=== PATIENT | male | born 1985 | race Caucasian/White ===

== ENCOUNTER 2017-11-28 11:41 | Emergency (ER) | payer OTHER ==
[~2017-11-28] VITALS: Ht 170.2 cm; Wt 75.0 kg
[2017-11-28] MEDS ORDERED: IOHEXOL 350 MG/ML 10 ML VIAL (for RAD DIAG) IVCONTRAST ONE (11:42)
[2017-11-28 11:50] VITALS: BP 156/96; PULSE 71; RESP 22; TEMP 97.9; O2SAT 100
[2017-11-28] MEDS ORDERED: SODIUM CHLOR 0.9% 1000 ML INJ 1,000 ML IV SCH (12:14)
[2017-11-28] MEDS ORDERED: SODIUM CHLORIDE 0.9% FLUSH 10 ML FLUSH IVF PRN (12:15)
[2017-11-28] MEDS ORDERED: MORPHINE SULFATE 4 MG/ML INJ IV PUSH ONE (12:30)
[2017-11-28] MEDS ORDERED: ONDANSETRON HCL 4 MG/2 ML VIAL IV ONE (12:30)
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
[2017-11-28 12:39] LABS: AUTOMATED NEUTROPHIL # 5.8 TH/MM3 (1.8-7.7); BASOPHIL # 0.1 TH/MM3 (0-0.2); BASOPHIL % 0.7 % (0.0-2.0); EOSINOPHIL # 0.5 TH/MM3 (0-0.4); EOSINOPHIL % 5.5 % (0.0-4.0); HEMATOCRIT 41.5 % (39.0-51.0); HEMOGLOBIN 14.9 GM/DL (13.0-17.0); LYMPH % 25.5 % (9.0-44.0); LYMPHOCYTE # 2.5 TH/MM3 (1.0-4.8); MEAN CELL VOLUME 88.1 FL (80.0-100.0); MEAN CORPUSCULAR HEMOGLOBIN 31.7 PG (27.0-34.0); MEAN PLATELET VOLUME 8.6 FL (7.0-11.0); MONO % 8.4 % (0.0-8.0); MONOCYTE # 0.8 TH/MM3 (0-0.9); NEUT % 59.9 % (16.0-70.0); PLATELET COUNT 250 TH/MM3 (150-450); RED BLOOD COUNT 4.72 MIL/MM3 (4.50-5.90); RED CELL DISTRIBUTION WIDTH 12.5 % (11.6-17.2); WHITE BLOOD COUNT 9.7 TH/MM3 (4.0-11.0)
[2017-11-28] MEDS ORDERED: ONDANSETRON ODT 4 MG TAB PO ONE (12:45)
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
[2017-11-28 12:49] LABS: INTERNATIONAL NORMALIZED RATIO 1.1 RATIO; PROTHROMBIN TIME - PATIENT 10.7 SEC (9.8-11.6)
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
--- NOTE | 2017-11-28 13:59 | PD ---
Physical Exam Time Seen by Provider: 13:58 Data Data Last Documented VS Vital Signs Date Time Temp Pulse Resp B/P (MAP) Pulse Ox O2 Delivery O2 Flow Rate FiO2 11/28/17 11:55 100 11/28/17 11:50 97.9 71 22 156/96 (116) Orders Orders I-Stat Profile (11/28/17 12:14) Complete Blood Count With Diff (11/28/17 12:14) Prothrombin Time / Inr (Pt) (11/28/17 12:14) Act Partial Throm Time (Ptt) (11/28/17 12:14) Ct Brain W/O Iv Contrast(Rout) (11/28/17 12:14) Ct Cerv Spine W/O Contrast (11/28/17 12:14) Ct Abd/Pel W Iv Contrast(Rout) (11/28/17 12:14) Ct Thorax/ Chest W Iv Contrast (11/28/17 12:14) Iv Access Insert/Monitor (11/28/17 12:14) Ecg Monitoring (11/28/17 12:14) Oximetry (11/28/17 12:14) Oxygen Administration (11/28/17 12:14) Sodium Chlor 0.9% 1000 Ml Inj (Ns 1000 M (11/28/17 12:14) Sodium Chloride 0.9% Flush (Ns Flush) (11/28/17 12:15) Ankle, Complete ([id number]) (11/28/17 ) Pelvis, Ap Only (Routine) (11/28/17 ) Chest, Single Ap (11/28/17 ) Morphine Inj (Morphine Inj) (11/28/17 12:30) Ondansetron Inj (Zofran Inj) (11/28/17 12:30) Ondansetron Odt (Zofran Odt) (11/28/17 12:45) Splint Or Brace Apply/Monitor (11/28/17 13:26) Crutches (11/28/17 13:26) Iohexol 350 Inj (Omnipaque 350 Inj) (11/28/17 11:42) Labs Laboratory Tests Test 11/28/17 12:20 White Blood Count 9.7 TH/MM3 Red Blood Count 4.72 MIL/MM3 Hemoglobin 14.9 GM/DL Bedside Hemoglobin 14.3 G/DL Hematocrit 41.5 % Bedside Hematocrit 42.0 % Mean Corpuscular Volume 88.1 FL Mean Corpuscular Hemoglobin 31.7 PG Mean Corpuscular Hemoglobin Concent 36.0 % Red Cell Distribution Width 12.5 % Platelet Count 250 TH/MM3 Mean Platelet Volume 8.6 FL Neutrophils (%) (Auto) 59.9 % Lymphocytes (%) (Auto) 25.5 % Monocytes (%) (Auto) 8.4 % Eosinophils (%) (Auto) 5.5 % Basophils (%) (Auto) 0.7 % Neutrophils # (Auto) 5.8 TH/MM3 Lymphocytes # (Auto) 2.5 TH/MM3 Monocytes # (Auto) 0.8 TH/MM3 Eosinophils # (Auto) 0.5 TH/MM3 Basophils # (Auto) 0.1 TH/MM3 CBC Comment AUTO DIFF Differential Comment AUTO DIFF CONFIRMED Prothrombin Time 10.7 SEC Prothromb Time International Ratio 1.1 RATIO Activated Partial Thromboplast Time 26.1 SEC Bedside Sodium 139 MMOL/L Bedside Potassium 4.4 MMOL/L Bedside Chloride 104 MMOL/L Bedside Blood Urea Nitrogen 158 MG/DL Bedside Creatinine 0.8 MG/DL Bedside Glucose 102 MG/DL [facility] Medical Record Reviewed: Yes Supervised Visit with MICHAEL: No Procedures Procedure Narrative LACERATION LOCATION: Right forehead LENGTH: 8 cm jagged NUMBER OF STITCHES/RIVER: 14 sutures REPAIR: The area of the laceration was prepped with Betadine and sterilely draped. The laceration was infiltrated with 1% lidocaine with epinephrine. The wound was copiously irrigated and explored without evidence of foreign body , tendon injury or neurovascular injury. The wound was closed using 5-0 Prolene. This was a single layer repair. A sterile dressing was applied. The patient was advised to keep the dressing clean and dry. Patient tolerated the procedure well. Condition: Stable BarreraErika armenta HAYLEY November 28, 2017 13:59
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
[2017-11-28 14:07] VITALS: O2SAT 100
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
[2017-11-28 15:15] VITALS: BP 151/89
== END 2017-11-28 15:15 | disposition home or self-care (01) ==
LOC: NEPD 11:41
DX: S01.81XA Laceration without foreign body of other part of head, initial encounter (principal); S82.65XA Nondisplaced fracture of lateral malleolus of left fibula, initial encounter for closed fracture; S80.812A Abrasion, left lower leg, initial encounter; S80.811A Abrasion, right lower leg, initial encounter; S40.812A Abrasion of left upper arm, initial encounter; S40.811A Abrasion of right upper arm, initial encounter; V28.4XXA Motorcycle driver injured in noncollision transport accident in traffic accident, initial encounter; F11.90 Opioid use, unspecified, uncomplicated; Z72.0 Tobacco use
CPT/HCPCS: 12015; 29515; 70450; 71045; 71260; 72125; 72170; 73610; 74177; 80048; 85025; 85610; 85730; 96374; 99291; E0113; J2270; Q9967